=== PATIENT | female | born 1960 | race Caucasian/White ===

== ENCOUNTER → 2018-12-07 08:45 | Outpatient (CLI) | payer OTHER, SELFPAY ==
--- NOTE | 2018-12-07 08:56 | BI_ITS ---
MAMMOGRAPHY - BILATERAL SCREENING REASON FOR EXAM: Female, 58 years old. Routine annual screening examination. PERTINENT HISTORY: Aunt with breast cancer. TECHNIQUE: Digital bilateral breast glynn (3D mammographic acquisition) in the CC and MLO projections. 2-D mediolateral oblique (MLO) and craniocaudad (CC) views of both breasts were obtained. CAD: Full Field Digital Mammography with Computer Added Detection was performed. COMPARISON: Comparison is made with prior examination dated July 01, 2017. FINDINGS: Breast Composition: There are scattered areas of fibroglandular density. There are no dominant masses or suspicious calcifications. Stable appearance of the benign bilateral axillary lymph nodes. A tissue clip marker is seen in the inferior medial portion of the right breast. No other significant abnormalities are identified. There has been no significant change since the prior study. BI/SCREENING MAMM (CAD), BILAT IMPRESSION: Stable bilateral screening mammogram. Yearly follow-up mammogram recommended. (A) ASSESSMENT CATEGORY: BIRADS Category 2: Benign. A letter regarding these results will be sent to the patient by the facility within 30 days. Approximately 10% of breast cancers are not detected by mammography. A normal mammogram should not delay biopsy of a clinically suspicious abnormality. [id number] Electronically Signed: Jean Najera MD at 14:13 EST , Service support ,
== END ==
PROVIDERS: Family Provider Family Medicine; PCP Family Medicine; Referring Provider Obstetrics & Gynecology; Visit Provider Obstetrics & Gynecology
DX: Z12.31 Encounter for screening mammogram for malignant neoplasm of breast (principal)
CPT/HCPCS: 77063; 77067

== ENCOUNTER → 2020-12-25 10:53 | Outpatient (CLI) | payer SELFPAY ==
[2018-12-31 15:02] VITALS: BMI 29.2
--- NOTE | 2020-12-25 10:54 | BI_ITS ---
MAMMOGRAPHY - BILATERAL SCREENING REASON FOR EXAM: Female, 60 years old. Routine annual screening examination. PERTINENT HISTORY: Aunts with breast cancer. TECHNIQUE: Digital bilateral breast nallely (3D mammographic acquisition) in the CC and MLO projections. 2-D mediolateral oblique (MLO) and craniocaudad (CC) views of both breasts were obtained. CAD: Full Field Digital Mammography with Computer Added Detection was performed. COMPARISON: Comparison is made with prior study dated 12/07/2018. FINDINGS: Breast Composition: There are scattered areas of fibroglandular density. There are no dominant masses or suspicious calcifications. Stable benign-appearing bilateral axillary lymph nodes. A tissue clip marker is once again seen in the inferior medial portion of the right breast. No other significant abnormalities are identified. There has been no significant change since the prior study. BI/SCRN MAMM (CAD)W/NALLELY BILAT IMPRESSION: Stable bilateral screening mammogram. Yearly follow-up mammogram recommended. (A) ASSESSMENT CATEGORY: BIRADS Category 2: Benign. A letter regarding these results will be sent to the patient by the facility within 30 days. Approximately 10% of breast cancers are not detected by mammography. A normal mammogram should not delay biopsy of a clinically suspicious abnormality. [id number] Electronically Signed: Jean Najera MD at 14:02 EST , Service support ,
== END ==
PROVIDERS: PCP Family Medicine; Referring Provider Obstetrics & Gynecology; Visit Provider Obstetrics & Gynecology
DX: Z12.31 Encounter for screening mammogram for malignant neoplasm of breast (principal)
CPT/HCPCS: 77063; 77067

== ENCOUNTER → 2023-12-01 | Outpatient (CLI) | payer BC, SELFPAY ==
--- NOTE | 2023-12-01 10:17 | BI_ITS ---
MAMMOGRAPHY - BILATERAL SCREENING REASON FOR EXAM: Female, 63 years old. Routine annual screening examination. PERTINENT HISTORY: Aunts with breast cancer. TECHNIQUE: Digital bilateral breast nallely (3D mammographic acquisition) in the CC and MLO projections. 2-D mediolateral oblique (MLO) and craniocaudad (CC) views of both breasts were obtained. CAD: Full Field Digital Mammography with Computer Added Detection was performed. COMPARISON: Comparison is made with prior study dated December 25, 2020 and December 07, 2018. FINDINGS: Breast Composition: There are scattered areas of fibroglandular density. There are no dominant masses or suspicious calcifications. Stable benign-appearing bilateral axillary. No other significant abnormalities are identified. There has been no significant change since the prior study. BI/SCRN MAMM (CAD)W/NALLELY BILAT IMPRESSION: Stable bilateral screening mammogram. Yearly follow-up mammogram recommended. (A) ASSESSMENT CATEGORY: BIRADS Category 2: Benign. A letter regarding these results will be sent to the patient by the facility within 30 days. Approximately 10% of breast cancers are not detected by mammography. A normal mammogram should not delay biopsy of a clinically suspicious abnormality. [id number] Electronically Signed: Jean Najera MD at 13:00 EST ,
--- OUTSIDE RECORDS SUMMARY | 2023-12-01 10:20 | XMS RPT_ITS | CCD ---
Author Name Unknown Address [id number] [place] [address] Organization [facility] Care Team Providers Care Advertising Supervisor Name Role Phone DARON CUADRA Unavailable Unavailable DARON CUADRA Unavailable Unavailable NO REFERRING DR Unavailable Unavailable DARON CUADRA Unavailable Unavailab DARON Mendiola Unavailable Unavailab le KRZYSZTOF ABIEL AColten Unavailable Unavailable BLANCA BLANKENSHIP Unavailable Unavailable KRZYSZTOF, ABIEL A. Unavailable Unavailable TEMO REBOLLEDO W Unavailable Unavailable SABOTA AUDREY W Unavailable Unavailable KRZYSZTOF, ABIEL A. Unavailable Unavailable KRZYSZTOF, BLANCA Unavailable Unavailable LIDIA GAINES Unavailable Unavailable KRZYSZTOF, BLANCA Unavailable Unavailable LIDIA GAINES Unavailable Unavailable KRZYSZTOF, ABIEL A. Unavailable Unavailable KRZYSZTOF, BLANCA Unavailable Unavailable KRZYSZTOF, ABIEL A. Unavailable Unavailable KRZYSZTOF, BLANCA Unavailable Unavailable BLANCA TRACEY Unavailable Unavailable ABDULLAHI BLANKENSHIPRELL Unavailable Unavailable PROVIDER, UNKNOWN Unavailable Unavailable Blanca Blankenship Unavailable Unavailable Buddy Benites Unavailable Unavailable Unavailable Primary Care Provider UnavailMagi Forrest MD Unavailable Magi Cueto MD Unavailable JARVIS Hou Emergency Provider NON STAFF Primary Care Provider UnavailMichael Rooney Admitting Unavailable Michael Hou Attending Unavailable NON STAFF Primary Care Unavailable Blanca Blankenship MD Primary Care Provider SHANI LOZOYA Attending Unavailable BLANCA BLANKENSHIP Primary Care Unavailable BLANCA BLANKENSHIP Attending Unavailable BLANCA BLANKENSHIP Primary Care Unavailable BLANCA BLANKENSHIP Referring Unavailable BLANCA BLANKENSHIP Attending Unavailable BLANCA BLANKENSHIP Primary Care Unavailable BLANCA BLANKENSHIP Referring Unavailable BLANCA BLANKENSHIP Attending Unavailable BLANCA BLANKENSHIP Primary Care Unavailable BLANCA BLANKENSHIP Attending Unavailable BLANCA BLANKENSHIP Primary Care Unavailable Allergies Allergy Classification Reported Allergen(s) Allergy Type Date of Onset Reaction(s) Facility (2 sources) Morphine Drug Allergy 8 rash, swelling, itching [facility] Work Phone: (8 sources) Azithromycin Drug Allergy 8 Nausea And Vomiting [facility] (8 sources) Morphine Drug Allergy 8 Itching, Rash [facility] Medications Current Medications Medication Drug Class(es) Dates Sig (Normalized) Sig (Original) amoxicillin 500 mg oral capsule (1 source) Penicillin-class Antibacterial Start: 09-18-2023 amoxicillin (Amoxil) 500 MG capsule TAKE FOUR CAPSULES BY MOUTH ONE HOUR BEFORE APPOINTMENT 0 09/18/2023 Active amoxicillin 875 mg / clavulanate 125 mg oral tablet (1 source) Penicillin-class Antibacterial Start: 09-20-2023 End: 09-27-2023 take 1 tablet by mouth twice daily amoxicillin-clavul anate (Augmentin) 875-125 MG tablet Indications: Acute non-recurrent frontal sinusitis Take 1 tablet by mouth 2 times daily for 7 days. 14 tablet 0 09/20/2023 09/27/2023 Active fenofibrate 54 mg oral tablet (9 sources) Peroxisome Proliferator Receptor alpha Agonist Start: 03-22-2023 End: 09-20-2023 take 1 tablet by mouth once daily fenofibrate (Tricor) 54 MG tablet Take 1 tablet by mouth once daily 90 tablet 0 09/20/2023 Active levothyroxine sodium 0.05 mg oral tablet (17 sources) l-Thyroxine Start: 09-01-2023 take 1.5 tablets by mouth once daily levothyroxine (Synthroid, Levoxyl) 50 MCG tablet Take 1.5 tablets (75 mcg) by mouth daily. 90 tablet 0 09/01/2023 Active Completed/Discontinued Medications Medication Drug Class(es) Dates Sig (Normalized) Sig (Original) acetaminophen 500 mg oral tablet (2 sources) TYLENOL EXTRA STRENGTH 500 MG TABS by mouth as directed as needed acetaminophen [id number] Shelbie Marsh LPN acetaminophen 325 mg / HYDROcodone bitartrate 5 mg oral tablet (9 sources) Opioid Agonist Start: 03-26-2023 End: 09-20-2023 HYDROcodone-acetamin ophen ([place]) 5-325 MG tablet Hydrocodone-Acetamin ophen Active 1 TAB PO Q6H 10 3 March 26, 2023 0 03/26/2023 09/20/2023 Discontinued (Med list cleanup) Problems Active Problems Problem Classification Problem Date Documented Da te Episodic/Chronic Disorders of lipid metabolism (8 sources) Hypercholesterolemi a; Translations: [Pure hypercholesterolemi a, unspecified] Onset: 01-03-2022 08-25-2022 Chronic External Injury - Fall (2 sources) Fall (on) (from) unspecified stairs and steps, initial encounter; Translations: [Fall (on) (from) unspecified stairs and steps, init encntr] Onset: 02-28-2018 Fracture of lower limb (2 sources) Stress fracture of foot; Translations: [Stress fracture, unspecified foot, initial encounter for fracture] Onset: 02-23-2022 02-23-2022 Episodic Fracture of upper limb (3 sources) 2-part displaced fracture of surgical neck of right humerus, initial encounter for closed fracture; Translations: [Fracture of phalanx of little finger] Onset: 02-28-2018 03-26-2023 Episodic Osteoarthritis (2 sources) Arthritis of right elbow; Translations: [Primary osteoarthritis, right elbow] Onset: 08-01-2018 08-01-2018 Chronic Other connective tissue disease (2 sources) Presence of right artificial shoulder joint; Translations: [Shoulder joint replacement] Onset: 11-01-2018 11-01-2018 Chronic Other connective tissue disease (2 sources) Tendinitis of foot; Translations: [Other enthesopathy of left foot and ankle] Onset: 02-23-2022 02-23-2022 Episodic Other connective tissue disease (2 sources) Foot pain; Translations: [Pain in left foot] Onset: 02-23-2022 02-23-2022 Episodic Other injuries and conditions due to external causes (2 sources) Unspecified injury of head, initial encounter; Translations: [Unspecified injury of head, initial encounter] Onset: 02-28-2018 Other nervous system disorders (2 sources) Cubital tunnel syndrome; Translations: [Lesion of ulnar nerve, right upper limb] Onset: 08-01-2018 08-01-2018 Chronic Other upper respiratory infections (4 sources) Acute frontal sinusitis; Translations: [Acute frontal sinusitis, unspecified] Onset: 09-20-2023 09-20-2023 Episodic Thyroid disorders (9 sources) Acquired hypothyroidism; Translations: [Hypothyroidism, unspecified] Onset: 10-03-2019 08-25-2022 Chronic Unclassified (1 source) Displaced fracture of proximal phalanx of left little finger, initial encounter for closed fracture; Translations: [Displaced fracture of proximal phalanx of left little finger, initial encounter for closed fracture] Onset: 03-26-2023 Past or Other Problems Problem Classification Problem Date Documented Da te Episodic/Chronic Menopausal disorders (2 sources) Hormone replacement therapy; Translations: [Hormone replacement therapy] Onset: 02-28-2018 Episodic Mood disorders (1 source) Mood disorders Onset: 09-20-2023 09-20-2023 Other circulatory disease (8 sources) Elevated blood pressure; Translations: [Elevated blood-pressure reading, without diagnosis of hypertension] Onset: 07-09-2020 08-25-2022 Episodic Other connective tissue disease (2 sources) Impingement syndrome of shoulder region; Translations: [Impingement syndrome of left shoulder] Onset: 03-08-2019 03-08-2019 Episodic Other connective tissue disease (2 sources) Adhesive capsulitis of shoulder; Translations: [Adhesive capsulitis of right shoulder] Onset: 08-01-2018 08-01-2018 Episodic Other gastrointestinal disorders (2 sources) Abdominal distension (gaseous); Translations: [Abdominal distension (gaseous)] Onset: 04-04-2023 Episodic Other gastrointestinal disorders (2 sources) Eructation; Translations: [Eructation] Onset: 04-04-2023 Episodic Other injuries and conditions due to external causes (2 sources) Unspecified injury of right shoulder and upper arm, initial encounter; Translations: [Unsp injury of right shoulder and upper arm, init encntr] Onset: 02-28-2018 Episodic Other non-traumatic joint disorders (2 sources) Shoulder pain; Translations: [Pain in right shoulder] Onset: 08-01-2018 08-01-2018 Episodic Sprains and strains (14 sources) Unspecified sprain of right wrist, initial encounter; Translations: [Sprain of unspecified ligament of right ankle, initial encounter] Onset: 02-28-2018 03-26-2023 Episodic Superficial injury; contusion (20 sources) Contusion of knee; Translations: [Contusion of left knee, initial encounter] Onset: 03-30-2023 03-26-2023 Episodic Unclassified (3 sources) Encounter for screening mammogram for malignant neoplasm of breast; Translations: [ENC SCR MAMMO MALIG NEOP] Onset: 07-01-2017 Episodic Unclassified (4 sources) Acquired absence of other specified parts of digestive tract; Translations: [Acquired absence of both cervix and uterus] Onset: 02-28-2018 Episodic Unclassified (2 sources) Problem Results Test Name Value Interpretation Reference Range Facil ity Vital Signs Date Time Vital Sign Value Performing Clinician [facility] 09-20-2023 14:40-0500 Body mass index (BMI) [Ratio] 30.3 kg/m2 Shani Bridenthal [employer] Work Phone: [facility] 09-20-2023 14:40-0500 Body temperature 98.71 [degF] Shani Raimundoenthal [employer] Work Phone: [facility] 09-20-2023 14:40-0500 Body weight 86.46 kg Shani Raimundoenthal [employer] Work Phone: [facility] 09-20-2023 14:40-0500 Diastolic blood pressure 79 mm[Hg] Shani Bridenthal [employer] Work Phone: [facility] 09-20-2023 14:40-0500 Heart rate 83 /min Hsani Bridenthal [employer] Work Phone: [facility] 09-20-2023 14:40-0500 Respiratory rate 24 /min Shani Bridenthal [employer] Work Phone: [facility] 09-20-2023 14:40-0500 SaO2% (BldA) [Mass fraction] 96 % Shani Raimundoenthal [employer] Work Phone: [facility] 09-20-2023 14:40-0500 Systolic blood pressure 158 mm[Hg] Shani Lozoya [employer] Work Phone: [facility] 03-26-2023 21:55-0400 Body temperature 99 [degF] PA-C Michael Hou Work Phone: [facility] 03-26-2023 21:55-0400 Diastolic blood pressure 79 mm[Hg] PA-C Michael Hou Work Phone: [facility] 03-26-2023 21:55-0400 Heart rate 69 /min PA-C Michael Hou Work Phone: [facility] 03-26-2023 21:55-0400 Respiratory rate 20 /min PA-C Michael Hou Work Phone: [facility] 03-26-2023 21:55-0400 SaO2% (BldA) [Mass fraction] 99 % PA-C Michael Hou Work Phone: [facility] 03-26-2023 21:55-0400 Systolic blood pressure 179 mm[Hg] PA-C Michael Hou Work Phone: [facility] 03-26-2023 18:39-0400 Body height 170.18 cm PA-C Michael Hou Work Phone: [facility] 03-26-2023 18:39-0400 Body weight 92.2 kg PA-C Michael Hou Work Phone: [facility] NEGATED: Highlighted [id number] 08:33-0400 Body height 170.18 cm Helen [facility] Work Phone: NEGATED: Highlighted [id number] 08:33-0400 Body height 170 cm Helen [facility] Work Phone: NEGATED: Highlighted [id number] 08:33-0400 Body mass index (BMI) [Ratio] 29.55 kg/m2 Helen Joseph [facility] Work Phone: NEGATED: Highlighted [id number] 08:33-0400 Body weight 85.28 kg Helen [facility] Work Phone: NEGATED: Highlighted [id number] 08:33-0400 Body weight 85 kg Helen Joseph [facility] Work Phone: NEGATED: Highlighted [id number] 07:58-0400 Body height 170.18 cm Helen [facility] Work Phone: NEGATED: Highlighted [id number] 07:58-0400 Body height 170 cm Helen [facility] Work Phone: NEGATED: Highlighted [id number] 07:58-0400 Body mass index (BMI) [Ratio] 29.55 kg/m2 Helen Joseph [facility] Work Phone: NEGATED: Highlighted [id number] 07:58-0400 Body weight 85.28 kg Helen [facility] Work Phone: NEGATED: Highlighted [id number] 07:58-0400 Body weight 85 kg Helen [facility] Work Phone: Encounters Encounter Date Encounter Type Care Provider Facility Start: 09-20-2023 End: 09-20-2023 ambulatory SHANI LOZOYA [facility] Start: 09-20-2023 End: 09-20-2023 Office outpatient visit 15 minutes Shani Lozoya [employer] Work Phone: [facility] Procedures Date Procedure Procedure Detail Performing Clinician Start: 09-20-2023 Adult depression screening assessment Shani Lozoya [employer] Work Phone: Start: 04-06-2023 Follow-up visit Follow-up BLANCA BLANKENSHIP Start: 03-07-2022 End: 03-07-2022 BP scrn no perf at interval Magi Cueto MD Work Phone: Start: 03-07-2022 End: 03-07-2022 Calc BMI abv up garrett f/u Magi Cueto MD Work Phone: Start: 03-07-2022 End: 03-07-2022 Current tobacco non-user cad cap copd pv dm Magi Cueto MD Work Phone: Start: 03-07-2022 End: 03-07-2022 Docd contact that fx existed & pt tsted/txd op Magi Cueto MD Work Phone: Start: 03-07-2022 End: 03-07-2022 Docrev cur meds by chantel Cueto MD Work Phone: Start: 03-07-2022 End: 03-07-2022 Patient encounter procedure Magi Cueto MD Work Phone: Start: 03-07-2022 End: 03-07-2022 Pneuma/vac walk boot pre ots Magi Ceuto MD Work Phone: Start: 03-07-2022 End: 03-07-2022 Pos pain assess no f/u doc Magi Cueto MD Work Phone: Start: 02-23-2022 End: 02-23-2022 BP scrn no perf at interval Magi Cueto MD Work Phone: Start: 02-23-2022 End: 02-23-2022 Calc BMI abv up garrett f/u Magi Cueto MD Work Phone: Start: 02-23-2022 End: 02-23-2022 Current tobacco non-user cad cap copd pv dm Magi Cueto MD Work Phone: Start: 02-23-2022 End: 02-23-2022 Docd contact that fx existed & pt tsted/txd op Magi Cueto MD Work Phone: Start: 02-23-2022 End: 02-23-2022 Docrev cur meds by chantel Cueto MD Work Phone: Start: 02-23-2022 End: 02-23-2022 Patient encounter procedure Magi Cueto MD Work Phone: Start: 02-23-2022 End: 02-23-2022 Pneuma/vac walk boot pre ots Magi Cueto MD Work Phone: Start: 02-23-2022 End: 02-23-2022 Pos pain assess no f/u doc Magi Cueto MD Work Phone: Start: 12-29-2020 Mammography Felisha de [employer] Work Phone: Start: 07-09-2020 H/O: artificial joint Presence of right artificial shoulder joint Felisha Junior [employer] Work Phone: Start: 07-01-2017 Mammography Daron ramirez Start: 08-09-2012 Colonoscopy Blanca enriquez MD Work Phone: Start: 10-17-2009 CONVERTED SURGICAL PATHOLOGY Daron Hogue Susan Work Phone: Start: 03-09-2004 CONVERTED SURGICAL PATHOLOGY Daron Hogue Susan Work Phone: NEGATED: Highlighted rowStart: 03-07-2022 End: 03-07-2022 Documentation of current medications Helen Joseph NEGATED: Highlighted rowStart: 02-23-2022 End: 02-23-2022 Documentation of current medications Helen Joseph Plan of Treatment Date Care Activity Detail Author Start: 03-26-2033 DTaP/Tdap/Td Vaccine s (2 - Td or Tdap) DTaP/Tdap/Td Vaccines (2 - Td or Tdap) [facility] Start: 03-04-2026 Diabetes mellitus screening Diabetes Screening [facility] Start: 09-20-2024 Depression Screening Depression Scre ening [facility] Start: 10-02-2023 End: 09-01-2024 Thyrotropin [Units/volume] in Serum or Plasma TSH Lab Routine Acquired hypothyroidism Expected: 10/02/2023 (Approximate), Expires: 09/01/2024 [facility] Work Phone: Immunizations Immunization Date Immunization Notes Care Provider Arash merida 03-26-2023 tetanus toxoid, redu rodney diphtheria toxoid, and acellular pertussis vaccine, adsorbed JARVIS Hou Work Phone: [facility] Payers Date Payer Category Payer Unknown [id number] 2023 Self-pay 2020 Unknown 2020 Unknown [id number] 2018 Unknown [id number] 1960 Unknown [id number] [id number] [id number] 1960 Unknown [id number] 2.16.8 [id number] 1960 Unknown [id number] 2.16.8 [id number] 1960 Unknown [id number] 2.16.8 [id number] 1960 Unknown [id number] 2.16.8 [id number] 1960 Unknown [id number] 2.16.8 [id number] 1960 Unknown [id number] 2.16.8 [id number] Unknown [id number] 2.16.8 [id number] Social History Date Type Detail [facility] Sex Assigned At Not on file [facility] Start: 02-23-2022 End: 03-07-2022 Assertion Unknown if ever smoked [facility] Work Phone: Start: 03-26-2023 Tobacco smoking stat us NHIS Never smoked tobacco (finding) [facility] Start: 1960 Sex Assigned At Female [facility] Start: 04-06-2023 End: 09-20-2023 Alcohol intake Current non-drinker of alcohol (finding) [facility] Start: 04-06-2023 History of Social function [facility] Start: 04-06-2023 Tobacco use panel [facility] Start: 09-01-2022 Gender identity Identifies as female gender (finding) [facility] Clinical Notes 04-03-2023 to 09-20-2023 Assessment & Plan Note - MENDEZ Barba CNP - 09/20/2023 5:27 PM ESTAssessment & Plan Note - MENDEZ Barba CNP - 09/20/2023 5:27 PM ESTPatient Instructions Note Date & Type Note Facility 09-20-2023 Evaluation + Plan note Associated Problem(s): Acute non-recurrent frontal sinusitis Will treat with antibiotics for bacterial sinusitis due to severity of symptoms and length of illness >7 days, not improving. [facility] 09-20-2023 Miscellaneous Notes Associated Problem(s): Acute non-recurrent frontal sinusitis Will treat with antibiotics for bacterial sinusitis due to severity of symptoms and length of illness >7 days, not improving. documented in this encounter [facility] 09-20-2023 Note Patient Education Sinusitis Discharge Instructions, Adult About this topic Your sinuses are hollow areas in the bones of your face. They have a thin lining that normally makes a small amount of mucus. When you have sinusitis, the lining gets swollen and makes extra mucus. You may have sinusitis with or after a cold. Most of the time sinusitis will get better in 1 to 2 weeks. Sinusitis is most often caused by a virus, so antibiotics won?t help. But some people do need antibiotics. If the doctor ordered antibiotics for you, be sure to follow the instructions. It is important to take all of your antibiotics even if you start to feel better. What care is needed at home? Ask your doctor what you need to do when you go home. Make sure you ask questions if you do not understand what you need to do. Try to thin the mucus. Drink lots of liquids to stay hydrated. Use a cool mist humidifier to avoid dry air. Use saline nose drops or a saline nose rinse to relieve stuffiness. Wash your hands often. This will help keep others healthy. Do not smoke or be in smoke-filled places. Avoid things that may cause breathing problems like fumes, pollution, dust, and other common allergens and irritants. You may want to take medicine like ibuprofen, naproxen, or acetaminophen to help with pain. What follow-up care is needed? Your doctor may ask you to make visits to the office to check on your progress. Be sure to keep your visits. Your doctor will tell you if other tests are needed. Your doctor may send you for allergy tests or to an allergy expert. What lifestyle changes are needed? Avoid drinks that contain caffeine or alcohol. Try to stop smoking. Avoid being around others who smoke. Smoke can damage the small hairs inside your sinuses. What drugs may be needed? The doctor may order drugs to: Help with pain and swelling Fight an infection Control coughing Dry up the sinuses Help a runny or stuffy nose Will physical activity be limited? You do not have to limit your activity. You may want to rest more if you have a fever or headache. What problems could happen? Infections that happen again and again Asthma attack Coughing Loss of voice What can be done to prevent this health problem? Keep your nose as moist as possible. Use saline sprays, washes, and a humidifier often. Avoid being around cigarette and cigar smoke or strong odors from chemicals. Avoid long periods of swimming in pools treated with chlorine. This can bother the lining of the nose and sinuses. Avoid water diving. This forces water into the sinuses from the nasal passages. Manage your allergies with your doctor's help. Use an air conditioner if allergies are a problem. Before air travel, use a drug to dry up mucus. As the plane takes off or lands, the pressure can cause sinus pain. When do I need to call the doctor? You have a stiff neck, especially if you also have fever, chills, vomiting, or severe headache You have trouble thinking clearly. You have trouble seeing or have double vision. You have swelling or redness or pain around one or both eyes. You have a fever of 102?F (38.9?C) or higher, or have shaking chills or sweats. You have an upset stomach and throwing up. You have more pain in your face and head. You are not getting better within 1 to 2 weeks. Teach Back: Helping You Understand The Teach Back Method helps you understand the information we are giving you. After you talk with the staff, tell them in your own words what you learned. This helps to make sure the staff has covered each thing clearly. It also helps to explain things that may have been confusing. Before going home, make sure you can do these: I can tell you about my condition. I can tell you what may help ease my breathing. I can tell you what I will do if I have a fever, chills, or trouble breathing. Where can I learn more? [employer] https://familydoctor.org/cond ition/sinusitis/ Centers for Disease Control and Prevention https://www.cdc.gov/antibioti c-use/community/for-hcp/outpa tient-hcp/adult-treatm ent-rec.html Last Reviewed Date 2021-04-21 Consumer Information Use and Disclaimer This generalized information is a limited summary of diagnosis, treatment, and/or medication information. It is not meant to be comprehensive and should be used as a tool to help the user understand and/or assess potential diagnostic and treatment options. It does NOT include all information about conditions, treatments, medications, side effects, or risks that may apply to a specific patient. It is not intended to be medical advice or a substitute for the medical advice, diagnosis, or treatment of a health care provider based on the health care provider's examination and assessment of a patient?s specific and unique circumstances. Patients must speak with a health care provider for complete inform (more content not included)... [facility] 09-20-2023 History of Presen t illness Narrative Patient was identified by name and Date of . Images from the original note were not included. 09/20/2023 Ester Saucedo (: 1960) is a 63 y.o. female , Established patient, here for evaluation of the following chief complaint(s): Cough (13 days), Nasal Congestion, and Earache ASSESSMENT/PLAN: 1. Acute non-recurrent frontal sinusitis Assessment & Plan: Will treat with antibiotics for bacterial sinusitis due to severity of symptoms and length of illness >7 days, not improving. Orders: - amoxicillin-clavulanate (Augmentin) 875-125 MG tablet; Take 1 tablet by mouth 2 times daily for 7 days., Starting 09/20/2023, Until Mon09/27/2023, Normal Reviewed and provided written patient education/instructions regarding diagnosis and management. Reviewed symptom management with non-pharmacological interventions and appropriate use of otc medications for relief of symptoms. Follow up for worsening or no improvement in symptoms. Follow up if symptoms worsen or fail to improve. SUBJECTIVE/OBJECTIVE: HPI - Estre Saucedo (: 1960) is a 63 y.o. female , Established patient, here for the evaluation of the following chief complaint(s): Cough (13 days), Nasal Congestion, and Earache Sinus pressure, headache, sore throat. Started over a week ago. Not getting much better. Wore out. Covid negative. Ear pressure. Using neti pot. acteminophen otc cold and flu, No fever or chills recently. Prior to Admission medications Medication Sig Start Date End Date Taking? Authorizing Provider fenofibrate (Tricor) 54 MG tablet Take 1 tablet by mouth once daily 09/20/23 Yes MENDEZ Barba CNP levothyroxine (Synthroid, Levoxyl) 50 MCG tablet Take 1.5 tablets (75 mcg) by mouth daily. 09/01/23 Yes Blanca Blankenship MD rosuvastatin (Crestor) 10 MG tablet Take 1 tablet by mouth once daily 07/05/23 Yes MENDEZ Oseguera CNP amoxicillin (Amoxil) 500 MG capsule TAKE FOUR CAPSULES BY MOUTH ONE HOUR BEFORE APPOINTMENT 09/18/23 Historical Provider, HYDROcodone-acetaminophen ([place]) 5-325 MG tablet Hydrocodone-Acetaminophen Active 1 TAB PO Q6H 10 March 26, 2023 03/26/23 Historical Provider, fenofibrate (Tricor) 54 MG tablet Take 1 tablet (54 mg) by mouth daily. 03/22/23 09/20/23 Blanca Blankenship MD Review of Systems Constitutional: Negative for chills, fatigue and fever. HENT: Positive for congestion, postnasal drip, sinus pressure and sinus pain. Negative for sore throat and trouble swallowing. Respiratory: Negative for cough and shortness of breath. Cardiovascular: Negative for chest pain. Gastrointestinal: Negative. Neurological: Positive for headaches. Vitals: 09/20/23 1440 BP: (!) 158/79 Pulse: 83 Resp: 24 Temp: 37.1 C (98.7 F) TempSrc: Infrared SpO2: 96% Weight: 190 lb 9.6 oz (86.5 kg) Physical Exam Constitutional: General: She is not in acute distress. Appearance: Normal appearance. She is ill-appearing (mild). HENT: Head: Normocephalic and atraumatic. Right Ear: Tympanic membrane normal. Left Ear: Tympanic membrane normal. Nose: Congestion and rhinorrhea present. Right Turbinates: Swollen. Left Turbinates: Swollen. Right Sinus: Maxillary sinus tenderness and frontal sinus tenderness present. Left Sinus: Maxillary sinus tenderness and frontal sinus tenderness present. Mouth/Throat: Mouth: Mucous membranes are moist. Pharynx: Oropharynx is clear. No oropharyngeal exudate or posterior oropharyngeal erythema. Eyes: Conjunctiva/sclera: Conjunctivae normal. Cardiovascular: Rate and Rhythm: Normal rate and regular rhythm. Pulses: Normal pulses. Heart sounds: Normal heart sounds. Pulmonary: Effort: Pulmonary effort is normal. Breath sounds: Normal breath sounds. Lymphadenopathy: Cervical: No cervical adenopathy. Skin: General: Skin is warm and dry. Neurological: Mental Status: She is alert and oriented to person, place, and time. Psychiatric: Mood and Affect: Mood normal. Behavior: Behavior normal. An electronic signature was used to authenticate this note. Shani Lozoya, MENDEZ - BRENT 09/20/2023 5:27 PM documented in this encounter [facility] 09-20-2023 Instructions MENDEZ Barba CNP - 09/20/2023 2:40 PM EST Images from the original note were not included. Patient Education Sinusitis Discharge Instructions, Adult About this topic Your sinuses are hollow areas in the bones of your face. They have a thin lining that normally makes a small amount of mucus. When you have sinusitis, the lining gets swollen and makes extra mucus. You may have sinusitis with or after a cold. Most of the time sinusitis will get better in 1 to 2 weeks. Sinusitis is most often caused by a virus, so antibiotics won t help. But some people do need antibiotics. If the doctor ordered antibiotics for you, be sure to follow the instructions. It is important to take all of your antibiotics even if you start to feel better. What care is needed at home? Ask your doctor what you need to do when you go home. Make sure you ask questions if you do not understand what you need to do. Try to thin the mucus. Drink lots of liquids to stay hydrated. Use a cool mist humidifier to avoid dry air. Use saline nose drops or a saline nose rinse to relieve stuffiness. Wash your hands often. This will help keep others healthy. Do not smoke or be in smoke-filled places. Avoid things that may cause breathing problems like fumes, pollution, dust, and other common allergens and irritants. You may want to take medicine like ibuprofen, naproxen, or acetaminophen to help with pain. What follow-up care is needed? Your doctor may ask you to make visits to the office to check on your progress. Be sure to keep your visits. Your doctor will tell you if other tests are needed. Your doctor may send you for allergy tests or to an allergy expert. What lifestyle changes are needed? Avoid drinks that contain caffeine or alcohol. Try to stop smoking. Avoid being around others who smoke. Smoke can damage the small hairs inside your sinuses. What drugs may be needed? The doctor may order drugs to: Help with pain and swelling Fight an infection Control coughing Dry up the sinuses Help a runny or stuffy nose Will physical activity be limited? You do not have to limit your activity. You may want to rest more if you have a fever or headache. What problems could happen? Infections that happen again and again Asthma attack Coughing Loss of voice What can be done to prevent this health problem? Keep your nose as moist as possible. Use saline sprays, washes, and a humidifier often. Avoid being around cigarette and cigar smoke or strong odors from chemicals. Avoid long periods of swimming in pools treated with chlorine. This can bother the lining of the nose and sinuses. Avoid water diving. This forces water into the sinuses from the nasal passages. Manage your allergies with your doctor's help. Use an air conditioner if allergies are a problem. Before air travel, use a drug to dry up mucus. As the plane takes off or lands, the pressure can cause sinus pain. When do I need to call the doctor? You have a stiff neck, especially if you also have fever, chills, vomiting, or severe headache You have trouble thinking clearly. You have trouble seeing or have double vision. You have swelling or redness or pain around one or both eyes. You have a fever of 102 F (38.9 C) or higher, or have shaking chills or sweats. You have an upset stomach and throwing up. You have more pain in your face and head. You are not getting better within 1 to 2 weeks. Teach Back: Helping You Understand The Teach Back Method helps you understand the information we are giving you. After you talk with the staff, tell them in your own words what you learned. This helps to make sure the staff has covered each thing clearly. It also helps to explain things that may have been confusing. Before going home, make sure you can do these: I can tell you about my condition. I can tell you what may help ease my breathing. I can tell you what I will do if I have a fever, chills, or trouble breathing. Where can I learn more? [employer] [employer] https://familydoctor.org/cond ition/sinusitis/ Centers for Disease Control and Prevention https://www.cdc.gov/antibioti c-use/community/for-hcp/outpa tient-hcp/yazdj-izusdrwyd-czc .html Last Reviewed Date 2021-04-21 Consumer Information Use and Disclaimer This generalized information is a limited summary of diagnosis, treatment, and/or medication information. It is not meant to be comprehensive and should be used as a tool to help the user understand and/or assess potential diagnostic and treatment options. It does NOT include all information about conditions, treatments, medications, side effects, or risks that may apply to a specific patient. It is not intended to be medical advice or a substitute for the medical advice, diagnosis, or treatment of a health care provider based on the health care provider's examination and assessment of a patient s specific and unique circumstances. Patients must speak with a health care provider for complete information about their health, medical questions, and treatment options, including any risks or benefits regarding use of medications. This information does not endorse any treatments or medications as safe, effective, or approved for treating a specific patient. [employer] and its affiliates disclaim any warranty or liability relating to this information or the use thereof. The use of this information is governed by the Terms of Use, available at https://www.[employer].com /en/know/clinical-effectivene ss-terms Copyright Copyright 2021 [employer] and its affiliates and/or licensors. All rights reserved. documented in this encounter [facility] 09-20-2023 Telephone encounter Note Reviewed chart. Refill appropriate. RX sent. [facility] 09-20-2023 Miscellaneous Notes Reviewed chart. Refill appropriate. RX sent. Prescription Request: Last medication check: none Last physical exam: 01/03/22 Next scheduled appointment: tomorrow Last date of refill on this medication 03/22/23 documented in this encounter [facility] 09-19-2023 Telephone encounter Note Prescription Request: Last medication check: none Last physical exam: 01/03/22 Next scheduled appointment: tomorrow Last date of refill on this medication 03/22/23 [facility] 09-01-2023 Telephone encounter Note Mailed order. [facility] 09-01-2023 Miscellaneous Notes Mailed order. Orders signed, Sig adjusted Notified of lab results on hardcopy. Cholesterol is good, blood sugar and chemistry are normal, CBC is normal. Thyroid level is a little low, increase to 75mcg daily and recheck in 4 weeks. Pt is agreeable, she states she just got a 90 day supply of the 50mcg and it is scored, so she is going to take 1.5 tabs daily and recheck in 4 weeks, requesting lab order be mailed to her. Please update sig and sign lab order, thanks! documented in this encounter [facility] 09-01-2023 Telephone encounter Note Orders signed, Sig adjusted [facility] 09-01-2023 Telephone encounter Note Notified of lab results on hardcopy. Cholesterol is good, blood sugar and chemistry are normal, CBC is normal. Thyroid level is a little low, increase to 75mcg daily and recheck in 4 weeks. Pt is agreeable, she states she just got a 90 day supply of the 50mcg and it is scored, so she is going to take 1.5 tabs daily and recheck in 4 weeks, requesting lab order be mailed to her. Please update sig and sign lab order, thanks! [facility] 07-05-2023 Telephone encounter Note Noted. Rx were sent with no refills. Will follow up when refills are due and see if she is settled with a new job/insurance. Should be seen if she is going to continue receiving refills. [facility] 07-05-2023 Miscellaneous Notes Noted. Rx were sent with no refills. Will follow up when refills are due and see if she is settled with a new job/insurance. Should be seen if she is going to continue receiving refills. This patient has not been seen in over a year and is refusing to schedule a physical due to possible job/insurance changes Name of caller: Ester Contact phone number: [phone] Relationship to Patient: patient Provider: Krzysztof Practice: [facility] Chief Complaint/Reason for Call: Patient returned call to office. She did not want to schedule physical a this time because she will be changing jobs and possibly insurances. She was informed prescriptions were called into pharmacy. Please advise. Best time of day caller can be reached: any Patient advised that office/PCP has 24-48 business hours to return their call: N/A Left a message to return call. Rx sent. Due for annual physical. Please schedule. Prescription Request: Last medication check: none Last physical exam: 01/03/22 Next scheduled appointment: none Last date of refill on this medication 01/02/23 90 days 1 refill documented in this encounter [facility] 07-05-2023 Telephone encounter Note This patient has not been seen in over a year and is refusing to schedule a physical due to possible job/insurance changes [facility] 07-05-2023 Telephone encounter Note Name of caller: Ester Contact phone number: [phone] Relationship to Patient: patient Provider: Krzysztof Practice: [facility] Chief Complaint/Reason for Call: Patient returned call to office. She did not want to schedule physical a this time because she will be changing jobs and possibly insurances. She was informed prescriptions were called into pharmacy. Please advise. Best time of day caller can be reached: any Patient advised that office/PCP has 24-48 business hours to return their call: N/A [facility] 07-05-2023 Telephone encounter Note Left a message to return call. [facility] 07-05-2023 Telephone encounter Note Rx sent. Due for annual physical. Please schedule. [facility] 07-05-2023 Telephone encounter Note Prescription Request: Last medication check: none Last physical exam: 01/03/22 Next scheduled appointment: none Last date of refill on this medication 01/02/23 90 days 1 refill [facility] 04-03-2023 Note I do not have a good explanation for why she is bloated and belching I will put in a referral for a ultrasound of her abdomen. [facility] Evaluation note There may be informa tion available, but it has not been provided by the sender. [facility] Work Phone: Evaluation note No assessment inform ation available [facility] Work Phone: documented in this encounter [facility] Diagnosis Acute non-recurrent frontal sinusitis- Primary [facility] Instruction Description Start Date CompletedPatient advised to follow-up with Primary Care Physician for BMI management. [facility] Work Phone: Instructions* Instruction Description Start Date CompletedPatient advised to follow-up with Primary Care Physician for BMI management. [facility] Work Phone: Summary Purpose Family History No Family History Records FoundNo Family History Records FoundNo Family History Records FoundNo Family History Records FoundThere may be information available, but it has not been provided by the sender.There may be information available, but it has not been provided by the sender.No Family HistoryRecords FoundNo Family History Records Found Advance Directives No Advanced Directives Records Found Advance Directive Response Recorded Date/ Time Advance Directives No March 26 7:42pm Chief Complaint Chief Complaint Description Start Date left foot pain Preliminary chief co mplaint data, not yet signed by the author as of Chief Complaint Description Start Date left ankle pain Preliminary chief co mplaint data, not yet signed by the author as of Chief Complaint and Reason for Visit Chief Complaint fall/knee pain Additional Source Comments INFORMATION SOURCE (unrecogn ized section and content) DATE CREATED AUTHOR AUTHOR'S ORGANIZ ATION 05/11/2018 [facility] DATE CREATED AUTHOR AUTHOR'S ORGANIZ ATION 09/13/2018 [facility] DATE CREATED AUTHOR AUTHOR'S ORGANIZ ATION 09/17/2018 [facility] DATE CREATED AUTHOR AUTHOR'S ORGANIZ ATION 03/27/2023 [facility] DATE CREATED AUTHOR AUTHOR'S ORGANIZ ATION 11/30/2023 [facility] Source Comments (unrecognize d section and content) In the event this informatio n is protected by the Federal Confidentiality of Alcohol and Drug Abuse Patient Records regulations: The Federal rules restrict any use of the information to criminally investigate or prosecute any alcohol or drug abuse patient.[facility] the event this information is protected by the Federal Confidentiality of Alcohol and Drug Abuse Patient Records regulations: The Federal rules restrict any use of the information to criminally investigate or prosecute any alcohol or drug abuse patient.[facility] Reason for Visit (unrecogniz ed section and content) Reason For Visit Description Start Date Test Result Preliminary reason f or visit data, not yet signed by the author as of left ankle pain Reason Onset Date Comments Med Refill returned call to office 07/05/2023 Returned call to office Reason Onset Date Comments Results 09/01/2023 Reason Comments Med Refill Reason Comments Cough 13 days Nasal Congestion Earache Care Teams (unrecognized sec tion and content) Team Status: Inactive Member Role Status Dates Michael Hou PA-C Emergency Provider Active NON STAFF Primary Care Provider Active Advertising Supervisor Relationship Specialty Start Date End Date Blanca Blankenship MD [address] [facility] [place] [address] PCP - General 02/28/18 Advertising Supervisor Relationship Specialty Start Date End Date Blanca Blankenship MD [address] [facility] [place] [address] PCP - General 02/28/18 Advertising Supervisor Relationship Specialty Start Date End Date Blanca Blankenship MD [address] [facility] [place] [address] PCP - General 02/28/18 Advertising Supervisor Relationship Specialty Start Date End Date Blanca Blankenship MD [address] [place] [address] [place] [address] PCP - General 02/28/18 Goals (unrecognized section and content) Goals may be documented in a n alternate section FOR RECORDS PERTAINING TO PATIENTS WHO ARE OR HAVE BEEN ENROLLED IN A CHEMICAL DEPENDENCY/SUBSTANCEABUSE PROGRAM, SOME INFORMATION MAY BE OMITTED. This clinical summary was aggregated from multiple sources. Caution should be exercised in using it in the provision of clinical care. This summary normalizes information from multiple sources, and as a consequence, information in this document may materially change the coding, format and clinical context of patient data. In addition, data may be omitted in some cases. CLINICAL DECISIONS SHOULD BE BASED ON THE PRIMARY CLINICAL RECORDS. [employer] provides no warranty or guarantee of the accuracy or completeness of information in this document.
== END | disposition home or self-care (01) ==
LOC: OPBI 10:16
PROVIDERS: PCP Family Medicine; Referring Provider Family Medicine; Visit Provider Family Medicine
DX: Z12.31 Encounter for screening mammogram for malignant neoplasm of breast (principal)
CPT/HCPCS: 77063; 77067

== ENCOUNTER → 2024-10-17 | Outpatient (CLI) | payer BC, SELFPAY | END | disposition home or self-care (01) | PROVIDERS: PCP Family Medicine | DX: I51.9 Heart disease, unspecified (principal); R06.81 Apnea, not elsewhere classified | CPT/HCPCS: 95810 ==

== ENCOUNTER → 2024-12-12 | Outpatient (CLI) | payer BC, SELFPAY ==
--- NOTE | 2024-12-12 14:07 | BI_ITS ---
PROCEDURE: SCRN MAMM (CAD)W/NALLELY BILAT REASON FOR EXAM: F, Age 64 y/o, routine mammographic follow-up. History of prior right needle biopsy. No family history. TECHNIQUE: Bilateral screening digital breast tomosynthesis with 2D and 3D images. Computer aided detection. COMPARISON: Prior exam(s) dating back to December 11, 2023. FINDINGS: There are scattered areas of fibroglandular density. Stable examination. Stable bilateral benign-appearing axillary lymph nodes. No suspicious masses, areas of developing architectural distortion, or suspicious calcifications. BI/SCRN MAMM (CAD)W/NALLELY BILAT IMPRESSION: BI-RADS 2: BENIGN. RECOMMEND ANNUAL MAMMOGRAPHIC SCREENING. Follow-up code: Routine Follow-up The patient will be notified of the results by letter. Reading Location: [place] [id number]
== END | disposition home or self-care (01) ==
PROVIDERS: PCP Family Medicine; Referring Provider Obstetrics & Gynecology; Visit Provider Obstetrics & Gynecology
DX: Z12.31 Encounter for screening mammogram for malignant neoplasm of breast (principal)
CPT/HCPCS: 77063; 77067